=== PATIENT | female | born 1935 | race Caucasian/White ===

== ENCOUNTER 2017-09-01 17:07 | Emergency (ER) | payer MEDICARE, OTHER ==
[~2017-09-01] VITALS: Ht 149.9 cm; Wt 38.9 kg
--- NOTE | 2017-09-01 17:21 | PHYS DOC ---
Adult General Chief Complaint Chief Complaint: COUGH HPI HPI Patient is a 81-year-old female who presents for evaluation of cough and shortness of breath. He comes from a rehabilitation facility. She had to be placed on oxygen yesterday not normal for her. She had a recent admission for a pneumonia. She has had a productive cough with clear sputum. She is afebrile upon arrival. The patient's son was concerned and wanted her brought to the emergency Department to rule out a recurrence of the pneumonia. She denies chest pain, back pain, abdominal pain, dizziness, chills, hemoptysis, nausea or vomiting, diaphoresis, or syncope. Review of Systems Review of Systems Constitutional: Denies fever or chills [] Eyes: Denies change in visual acuity, redness, or eye pain [] HENT: Denies nasal congestion or sore throat [] Respiratory: + productive cough and shortness of breath Cardiovascular: No additional information not addressed in HPI [] GI: Denies abdominal pain, nausea, vomiting, bloody stools or diarrhea [] : Denies dysuria or hematuria [] Musculoskeletal: Denies back pain or joint pain [] Integument: Denies rash or skin lesions [] Neurologic: Denies headache, focal weakness or sensory changes [] Endocrine: Denies polyuria or polydipsia [] All other systems were reviewed and found to be within normal limits, except as documented in this note. Allergies Allergies Allergies Coded Allergies Type Severity Reaction Last Updated Verified Penicillins Allergy Unknown 09/01/17 Yes Sulfa (Sulfonamide Antibiotics) Allergy Unknown 09/01/17 Yes diphenhydramine Allergy Unknown 09/01/17 Yes erythromycin base Allergy Unknown 09/01/17 Yes theophylline Allergy Unknown 09/01/17 Yes Physical Exam Physical Exam Constitutional: no acute distress, non-toxic appearance. [] HENT: Normocephalic, atraumatic, bilateral external ears normal, oropharynx moist, no oral exudates, nose normal. [] Eyes: PERRLA, EOMI, conjunctiva normal, no discharge. [] Neck: Normal range of motion, no tenderness, supple, no stridor. [] Cardiovascular:Heart rate regular rhythm, no murmur [] Lungs & Thorax: Coarse breath sounds with rhonchi on the left, right side is clear, no respiratory distress Abdomen: Bowel sounds normal, soft, no tenderness, no masses, no pulsatile masses. [] Skin: Warm, dry, no erythema, no rash. [] Back: No tenderness, no CVA tenderness. [] Extremities: No tenderness, no cyanosis, no clubbing, ROM intact, no edema. [] Neurologic: Alert and oriented X 3, normal motor function, normal sensory function, no focal deficits noted. [] Psychologic: Affect normal, judgement normal, mood normal. [] Current Patient Data Lab Results Current Medications Medications (Trade) Dose Ordered Sig/Maira Route PRN Reason Start Time Stop Time Status Last Admin Dose Admin Levofloxacin (Levaquin) 500 mg 1X ONCE PO 09/01/17 19:00 09/01/17 19:01 DC 09/01/17 18:53 EKG EKG My interpretation EKG shows a sinus rhythm at 89 bpm. There are occasional premature ventricular complex complexes. There is prolonged QT interval. An leftward axis. No findings acute STEMI of contralateral changes at this time.[] Radiology/Procedures Radiology/Procedures My interpretation of chest x-ray shows fibrotic-appearing lung disease. There is elevation of right diaphragm and blunting of the closed phrenic angle. There appears to be increased infiltrate over right lung cabrera. There is cardiomegaly. 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 Does have degenerative joint changes. Right shoulder repair clips. Generally joint changes. A very prominent aortic arch. With deviation of trachea.[] Course & Med Decision Making Course & Med Decision Making Pertinent Labs and Imaging studies reviewed. (See chart for details) @1800 - Pt care transferred to Dr. Avalos at this time. VSS. Pt may require admission depending on her results. See Dr. Kearney chart for details. Discussed with Pt. and son possible need for admission. Pt. and son request transfer to where her primary and all her specialists, including pulmonary are at. transfer - advised they would accept pt in transfer- Dr. Braswell. Impression: 1. Respiratory Failure- Hypoxia ( Has not required oxygen prior at home) 2. Pneumonia 3. Chronic Fibrosis- Lung Dz 4. Leukocytosis 5. Anemia 6. Mild CHF - Elevated BNP 7. Mild elevation Trop 8. Hx. CADz 9. Weakness and Decondition 10. Dementia Dragon Disclaimer Dragon Disclaimer This electronic medical record was generated, in whole or in part, using a voice recognition dictation system. Departure Departure: Impression: Primary Impression: Respiratory failure Additional Impression: Pneumonia Disposition: 05 XFER OTHER (KODY Brawsell) Condition: STABLE Referrals: KARSON VERGARA (PCP) Problem Qualifiers ROCKY KEARNEY DO Sep 01, 2017 17:21 STEPHANIE AVALOS MD Sep 01, 2017 23:14
--- NOTE | 2017-09-01 17:35 | EKG ---
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
[2017-09-01 18:04] LABS: BASO # 0.1 x10^3/uL (0.0-0.2); BASO % 1 % (0-3); EOS # 0.1 x10^3/uL (0.0-0.7); EOS % 0 % (0-3); HEMATOCRIT 32.1 % (36.0-47.0); HEMOGLOBIN 10.6 g/dL (12.0-15.5); LYMPH % 7 % (24-48); MEAN CORPUSCULAR HEMOGLOBIN 27 pg (25-35); MEAN CORPUSCULAR HGB CONC 33 g/dL (31-37); MEAN CORPUSCULAR VOLUME 81 fL (79-100); MONO # 0.6 x10^3/uL (0.0-1.1); MONO % 4 % (0-9); NEUT # 13.7 x10^3uL (1.8-7.7); NEUT % 88 % (31-73); PLATELET COUNT 545 x10^3/uL (140-400); RED BLOOD COUNT 3.99 x10^6/uL (3.50-5.40); RED CELL DISTRIBUTION WIDTH 16.7 % (11.5-14.5); WHITE BLOOD COUNT 15.5 x10^3/uL (4.0-11.0)
[2017-09-01 18:22] LABS: BGAS PH 7.46 (7.35-7.45)
[2017-09-01] MEDS ORDERED: DONE5TAB7 PO (18:46)
[2017-09-01] MEDS ORDERED: ASPI81TA50 PO (18:46)
[2017-09-01] MEDS ORDERED: SERT50TA PO (18:47)
[2017-09-01] MEDS ORDERED: HYDR200T5 PO (18:47)
[2017-09-01] MEDS ORDERED: PRED-220 PO (18:48)
[2017-09-01] MEDS ORDERED: AMLO5TAB2 PO (18:48)
[2017-09-01] MEDS ORDERED: OMEP20CA9 PO (18:48)
[2017-09-01] MEDS ORDERED: LEVO50TA5 PO (18:49)
[2017-09-01] MEDS ORDERED: levoFLOXacin 500 MG TABLET PO ONE (19:00)
[2017-09-01 19:34] VITALS: BP 112/63
[2017-09-01 19:39] LABS: POTASSIUM 3.9 mmol/L (3.5-5.1)
[2017-09-01 21:00] LABS: % BANDS 3 % (0-9); % EOS 1 % (0-5); % LYMPHS 4 % (24-48); % MONOS 4 % (0-10); % MYELOS 1 % (0-0); % SEGS 87 % (35-66); TOXIC GRANULATION PRESENT
[2017-09-01 21:02] LABS: TOXIC VACUOLATION PRESENT
[2017-09-01 21:31] LABS: PLT ESTIMATE INCREASED (ADEQUATE)
[2017-09-01 21:36] LABS: OVALOCYTES FEW
--- NOTE | 2017-09-02 08:31 | RAD ---
Portable chest, 09/01/2017: History: Shortness of breath No previous studies are available at this time for comparison purposes. 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 The heart appears to be within normal limits in size. There is calcific plaquing of the aorta. Patchy pulmonary infiltrates are present in the right upper lobe and both lung bases. There is mild blunting of the right lateral costophrenic angle. The bony structures are demineralized. There is a moderate right convexity thoracic scoliosis with multilevel degenerative changes. A cluster of coil like radiopacities are projected over the upper aspect of the liver, probably representing old embolization coils. IMPRESSION: 1. Mild patchy bilateral pulmonary infiltrates compatible with pneumonia. A component of scarring cannot be excluded. Comparison with older chest radiographs if available would be most helpful. 2. Blunting of the right lateral costophrenic angle compatible with a small amount pleural fluid or scarring.
== END 2017-09-01 20:20 | disposition short-term general hospital (02) ==
LOC: ER 17:07
DX: J96.91 Respiratory failure, unspecified with hypoxia (principal); J18.9 Pneumonia, unspecified organism; A15.0 Tuberculosis of lung; D64.9 Anemia, unspecified; I50.9 Heart failure, unspecified; I25.10 Atherosclerotic heart disease of native coronary artery without angina pectoris; F03.90 Unspecified dementia, unspecified severity, without behavioral disturbance, psychotic disturbance, mood disturbance, and anxiety; R79.89 Other specified abnormal findings of blood chemistry; Z88.0 Allergy status to penicillin; Z88.2 Allergy status to sulfonamides; Z88.1 Allergy status to other antibiotic agents; Z88.8 Allergy status to other drugs, medicaments and biological substances
CPT/HCPCS: 36415; 71045; 80051; 82553; 82803; 83605; 83880; 84484; 85007; 85025; 87040; 93005; 99285